=== PATIENT | female | born 1940 | race Caucasian/White ===

== ENCOUNTER → 2016-11-17 | Outpatient (CLI) | payer MEDICARE | LOC: GMAM 14:50 | PROVIDERS: ATTEND Family Medicine | DX: R63.4 Abnormal weight loss (principal); I10 Essential (primary) hypertension ==

== ENCOUNTER → 2016-11-25 | Outpatient (CLI) | payer MEDICARE ==
--- NOTE | 2016-11-26 16:31 | MRI ---
Procedure: MR LEFT KNEE WITHOUT IV CONTRAST Exam Date: 11/25/2016 12:00 AM CDT Ordering Provider: ADRY TURK Clinical Indication: Left knee pain Comparison: None TECHNIQUE: Multiplanar, multisequence MR images of the left knee were obtained. FINDINGS: ACL and PCL are intact. Oblique undersurface tear of the posterior horn and body of the medial meniscus. There is grade II chondrosis in the medial compartment. MCL is intact. The lateral meniscus is intact. Lateral compartment cartilage is without focal defect. Lateral collateral ligamentous complex is intact. Patellofemoral extensor mechanism is unremarkable. Patchy multifocal full-thickness chondrosis within the superior medial patellar facet and the patellar apex compatible with full-thickness chondrosis. Trochlear cartilage also demonstrates full-thickness chondrosis in the medial more so than lateral trochlear facet. No large joint effusion or loose body seen. No Echevarria cyst appreciated. Bone marrow is otherwise unremarkable. IMPRESSION: 1. Oblique undersurface medial meniscal tear involving the posterior horn with resultant moderate medial compartment chondrosis. 2. 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 Electronically signed by: Deni Alvarez MD 11/26/2016 4:29 PM CDT
== END ==
LOC: MRI 11:09
PROVIDERS: ATTEND Family Medicine
DX: S83.242A Other tear of medial meniscus, current injury, left knee, initial encounter (principal)

== ENCOUNTER → 2017-12-19 | Outpatient (CLI) | payer MEDICARE ==
--- NOTE | 2017-12-19 14:53 | RAD ---
EXAM: Wrist,Right 3 Views CLINICAL HISTORY: WRIST PAIN COMPARISON STUDY: None recent TECHNICAL: AP, lateral and oblique images FINDINGS: There is a transverse fracture through the right distal radial metaphysis. The fracture fragments are not displaced. Sclerosis is seen along the fracture line indicating healing but incomplete fusion. The radiocarpal joint is intact. The carpal bones appear intact. There are moderate degenerative changes at the carpal/first metacarpal joint. IMPRESSION: 1. Healing nondisplaced right distal radial metaphysis fracture. 2. Moderate degenerative changes at the carpal/first metacarpal joint. Electronically signed by: Heath Mares MD 12/19/2017 2:51 PM CDT
== END ==
LOC: RAD 09:08
PROVIDERS: ATTEND Orthopaedic Surgery
DX: S52.591A Other fractures of lower end of right radius, initial encounter for closed fracture (principal)

== ENCOUNTER → 2018-01-09 | Outpatient (CLI) | payer MEDICARE ==
--- NOTE | 2018-01-09 10:57 | RAD ---
EXAM DESCRIPTION: Wrist,Right 3 Views CLINICAL HISTORY: 77 years, Female, FRACTURE AT DISTAL END OF RADIUS COMPARISON: December 19, 2017 FINDINGS: Three-view right wrist study shows healing distal radius fracture which remains well aligned. IMPRESSION: 1. Healing fracture distal radius Electronically signed by: Jens Guan MD 01/09/2018 10:55 AM CDT
== END ==
LOC: RAD 09:53
PROVIDERS: ATTEND Orthopaedic Surgery
DX: S52.501D Unspecified fracture of the lower end of right radius, subsequent encounter for closed fracture with routine healing (principal)

== ENCOUNTER → 2018-01-31 | Outpatient (CLI) | payer MEDICARE ==
--- NOTE | 2018-02-01 10:09 | RAD ---
EXAM: Wrist,Right 3 Views CLINICAL HISTORY: CLOSED FRACTURE OF DISTAL END RADIUS COMPARISON STUDY: Right wrist January 09, 2018 TECHNICAL: AP, lateral and oblique images of the right wrist FINDINGS: The transverse fracture through the distal radial metaphysis shows ongoing healing. There is a band of sclerosis. There is a minimal disruption of the cortex. No new fracture seen. The carpal bones are intact. There are mild degenerative changes of the lateral carpal row. IMPRESSION: Healing right distal radial metaphysis fracture. Mild degenerative changes of the lateral carpal row. Electronically signed by: Heath Mares MD 02/01/2018 10:08 AM [facility]
== END ==
LOC: RAD 09:01
PROVIDERS: ATTEND Orthopaedic Surgery
DX: S52.501D Unspecified fracture of the lower end of right radius, subsequent encounter for closed fracture with routine healing (principal)

== ENCOUNTER → 2018-02-09 | Outpatient (CLI) | payer MEDICARE ==
--- NOTE | 2018-02-09 15:40 | RAD ---
EXAM DESCRIPTION: Hand,Right 3 Views CLINICAL HISTORY: PAIN IN RIGHT HAND COMPARISON: Radiographs of the wrist dated 01/31/2018. TECHNIQUE: AP, LATERAL, AND OBLIQUE FINDINGS: The visualized bones appear poorly mineralized. Healing fracture of the distal radius is again noted. The soft tissues appear grossly unremarkable. IMPRESSION: Healing fracture of the distal radius. Mild osteopenia probably from disuse. Electronically signed by: Chas Emanuel MD 02/09/2018 3:39 PM [facility]
== END ==
LOC: RAD 08:46
PROVIDERS: ATTEND Orthopaedic Surgery
DX: M79.641 Pain in right hand (principal); S52.501D Unspecified fracture of the lower end of right radius, subsequent encounter for closed fracture with routine healing

== ENCOUNTER 2018-08-26 10:41 | Emergency (ER) | payer MEDICARE, OTHER ==
[2018-08-26 11:08] VITALS: BP 0/0
[2018-08-26] MEDS ORDERED: EPINEPHrine INJ 0.1 MG/ML 10 ML SYG IV ONE (11:11)
--- NOTE | 2018-08-26 11:25 | ED.PDOC ---
History of Present Illness - General Chief Complaint: Cardiac Respiratory Arrest Stated Complaint: unresponsive Time Seen by Provider: 08/26/18 11:08 Source: EMS Exam Limitations: clinical condition - intubated - History of Present Illness Initial Comments: Matilde Ruiz 78 y/o female brought by EMS after becoming unrenponsive at home then they were called up on this patient who just came from the grocery and passed out suddenly then the friend who was at home had done cpr and according to EMS briefly became pink as they were told then on EMS arrival the took over the cpr was connected to AED and monitor showing PEA then chest compression continued initially ET tube was attempted but unable to insert it then head Ike LMA and also IO on her right leg placed she was given 2 doses of epinephprine prior to coming to ER with continued chest compression and bagging done .But no ROSC ;she was found to be pale all over despite continued chest compression and bagging;No pulses felt-carotid and femoral blood pressure 0/0;both pupils were dilated and non reactive.;Given 2 doses of Epinephrine IV as per ACLS ptrotocol here in ER with continued chest compression and bagging but monitor check showing PEA and talked to family member and friend after resuscitative effort was stopped at 1045 H and she was pronounced . Timing/Duration: 1 hour Severity: severe Activities at Onset: activity Prior Chest Pain/Cardiac Workup: no prior chest pain, no prior cardiac workup Improving Factors: nothing Worsening Factors: nothing Allergies/Adverse Reactions: Allergies NO KNOWN ALLERGY Allergy (Verified 08/26/18 11:10) Review of Systems - Review of Systems Unable to Obtain Due To: condition - intubated Past Medical History (General) - Patient Medical History Hx Congestive Heart Failure: - unknown Surgical History: noncontributory - Vaccination History Hx Influenza Vaccination: - UNKNOWN Hx Pneumococcal Vaccination: - UNKNOWN - Social History Hx Tobacco Use: Yes - according to grandauter Family Medical History - Family History Mother Family History: Unknown Living Status: Unknown Physical Exam - Physical Exam General Appearance: Other - unresponsive Eyes, Ears, Nose, Throat Exam: other - fixed dilated Neck: supple Respiratory: other - intubated and bagged Cardiovascular/Chest: other - no pulsee Peripheral Pulses: femoral,right: 0, femoral,left: 0 Gastrointestinal/Abdominal: soft, no organomegaly Extremity: no pedal edema Neurologic: other - unresponsive Skin Exam: other - cold, pallor - allover Progress - Progress Progress: 08/26/18 11:35 Vital Signs - 8 hr 08/26/18 08/26/18 10:53 11:01 Pulse Rate [ 0 L 0 L Right Brachial] Respiratory 0 L 0 L Rate Blood Pressure 0/0 [Right Arm] O2 Sat by Pulse 83 L Oximetry Departure - Departure Clinical Impression: Cardiorespiratory arrest, D.O.A. ( on arrival) Time of Disposition: 11:46 Disposition: Departure Forms: Patient Portal Self Enrollment Referrals: Tavares Mendoza MD [Primary Care Provider] - 1-2 Weeks
[2018-08-26 12:31] VITALS: O2SAT 0
== END 2018-08-26 10:45 | disposition expired ==
LOC: ER 10:41
DX: I46.9 Cardiac arrest, cause unspecified (principal); Z87.891 Personal history of nicotine dependence